=== PATIENT | male | born 1965 | race Caucasian/White ===

== ENCOUNTER 2023-11-05 19:32 | Emergency (ER) | payer OTHER, SELFPAY ==
[2023-11-05 19:39] VITALS: BP 162/88; PULSE 65; RESP 20; TEMP 36.7; O2SAT 97; BMI 21.7
--- NOTE | 2023-11-05 20:03 | CRLHL7_ITS ---
For Patients: As a result of the Century Cures Act, medical imaging exams and procedure reports are released immediately into your electronic medical record. You may view this report before your referring provider. If you have questions, please contact your health care provider. INDICATION: Cough. TECHNIQUE: Chest radiographs, two views. COMPARISON: Chest radiographs 06/04/2021. FINDINGS: Lines/Tubes/Devices: None. Mediastinum: Normal cardiac silhouette. Lungs: There may be a subtle ill-defined hazy left retrocardiac opacification, with obscuration of the lower thoracic vertebral bodies. Linear bandlike opacifications of the lung bases likely due to subsegmental atelectasis and/or scarring. Airways: The trachea remains midline. Pleura: No pleural effusions or pneumothorax. Bones: No acute osseous abnormalities. Upper Abdomen: Unremarkable. IMPRESSION: Questionable ill-defined left retrocardiac opacification, which may represent atelectasis versus a developing pneumonia in the appropriate clinical setting. Dictated by Jose Alejandro MD @ 11/05/2023 8:53:47 PM (Electronically Signed)
--- NOTE | 2023-11-05 20:04 | ED_ITS ---
HPI - General Adult General Chief complaint: Shortness of Breath/Dyspnea Stated complaint: shortness of breath, weak Time Seen by Provider: 11/05/23 19:43 History of Present Illness HPI narrative: This 58-year-old male was seen yesterday in the emergency department and diagnosed with influenza. He started Tamiflu in comes in today because he states that he feels more short of breath with chest fullness. He does arrive here with normal vital signs and is showing no signs of respiratory distress. Related Data Previous Rx's Medication Instructions Recorded oseltamivir 75 mg capsule (Tamiflu) 75 mg PO BID 5 days #10 caps 11/04/23 acetaminophen 300 mg-codeine 30 mg 1 tab PO Q6H PRN pain #20 tabs 11/05/23 tablet methylprednisolone 4 mg tablets in See Rx Instructions PO .COMPLEX 11/05/23 a dose pack (Medrol (Flynn)) #21 ea Allergies Allergy/AdvReac Type Severity Reaction Status Date / Time Penicillins Allergy Mild SWELLING Verified 11/04/23 15:57 Review of Systems Status of ROS: Reports: 10 or more systems reviewed and unremarkable except as noted in History and below Narrative: Constitutional: No fevers, no weight gain or loss. Generalized aches and pains. Eyes: No discharge. No vision changes. HENT: No congestion, no sore throat, no ear pain. Cardiovascular: No chest pain, no palpitations. Respiratory: No wheezes. He reports a cough and shortness of breath. Gastrointestinal: No abdominal pain, no vomiting, no diarrhea. Genitourinary: No dysuria, no hematuria. Musculoskeletal: Normal range of motion. Skin: No rashes, no pruritis. Neurological: No dizziness, weakness, sensory change, speech change. Endo/Heme/Allergies: No bruising or bleeding. No polydipsia. Pysch: no suicidality, no anxiety, no insomnia. All other systems reviewed and are negative. [facility] Medical History (Updated 11/05/23 @ 21:06 by Niraj Farrar MD) Influenza ?J11.1 - Influenza due to unidentified influenza virus with other respiratory manifestations (ICD-10) Exam Narrative: Exam Narrative: Constitutional: Well-developed, well-nourished, no acute distress. HEENT: Normocephalic, atraumatic. Neck: Normal range of motion. Nontender. Supple. Heart: Regular. No murmurs. Normal rate. Intact distal pulses. Lungs: Clear to auscultation. No chest discomfort. No wheezes, rhonchi, or rales. Abdomen: Normal bowel sounds. Nontender. No rebound tenderness. Genitalia: Deferred. Back: No midline tenderness. Normal range of motion. Extremities: Normal range of motion. No injury. Skin: Intact. No rash. Warm. No erythema or pallor. Neurologic: No altered sensation. No weakness. Alert and oriented. Psychiatric: No suicidality. No anxiety or depression. No insomnia. Nursing notes and vitals signs are reviewed. Const: Vital Signs, click to edit/add: Vital Signs - 24 hr 11/05/23 19:39 Temperature 98.0 F Pulse Rate [Pulse Oximeter] 65 Respiratory Rate 20 Blood Pressure [Ri ght Upper Arm] 162/88 H Pulse Oximetry 97 Oxygen Delivery Me thod Room Air Course Vital Signs Vital signs: Initial Vital Signs Temperature 98.0 F 11/05/23 19:39 Temperature Source Temporal Artery Scan 11/05/23 19:39 Pulse Rate 65 11/05/23 19:39 Pulse Rhythm Regular 11/05/23 19:39 Respiratory Rate 20 11/05/23 19:39 Blood Pressure 162/88 H 11/05/23 19:39 Blood Pressure Mean 112 H 11/05/23 19:39 Blood Pressure Position Sitting 11/05/23 19:39 Pulse Oximetry 97 11/05/23 19:39 Oxygen Delivery Method Room Air 11/05/23 19:39 Vital Signs Temperature 98.0 F 11/05/23 19:39 Pulse Rate 65 11/05/23 19:39 Respiratory Rate 20 11/05/23 19:39 Blood Pressure 162/88 H 11/05/23 19:39 Pulse Oximetry 97 11/05/23 19:39 Oxygen Delivery Method Room Air 11/05/23 19:39 Temperature 98.0 F 11/05/23 19:39 Pulse Rate 65 11/05/23 19:39 Respiratory Rate 20 11/05/23 19:39 Blood Pressure 162/88 H 11/05/23 19:39 Pulse Oximetry 97 11/05/23 19:39 Oxygen Delivery Method Room Air 11/05/23 19:39 Medical Decision Making MDM Narrative Medical decision making narrative: This patient is positive for influenza a infection. He comes in stating that he feels more chest congestion and shortness of breath. He does arrive with normal vital signs and is not using accessory muscles for breathing. He is oximetry is 97% on room air. I chest x-ray is obtained and shows no findings typical of pneumonia. Radiologist questions about a retrocardiac up on finding that may be in a past City but this really is not likely a pneumonia when correlated with clinical findings of examining the patient. The patient did receive an oral dose of dexamethasone 10 mg. He also received prescriptions for Tylenol 3 and Medrol Dosepak. He is currently taking Tamiflu but it sounds like he started this medicine about 3 days after the onset of symptoms. This is probably outside of the time frame where Tamiflu may provide some benefit. Imaging Data Chest x-ray: Radiologist's impression: Questionable ill-defined left retrocardiac opacification, which may represent atelectasis versus a developing pneumonia in the appropriate clinical setting. Discharge Plan Discharge Clinical Impression: Influenza Patient Disposition: Home, Self-Care Condition: Stable Additional Instructions: Take medication as needed and indicated. Follow up with MD or return if worsening symptoms occur. Prescriptions: New acetaminophen-codeine 300-30 mg tablet 1 tab PO Q6H PRN (Reason: pain) Qty: 20 0RF methylprednisolone [Medrol (Flynn)] 4 mg tablets,dose pack See Rx Instructions .ROUTE .COMPLEX Qty: 21 0RF Rx Instructions: orally per package directions No Action oseltamivir [Tamiflu] 75 mg capsule 75 mg PO BID 5 Days Qty: 10 0RF Follow Up/Referrals: Niraj Molina MD [Primary Care Provider] - Stand Alone Forms: [employer] Info Instructions
--- OUTSIDE RECORDS SUMMARY | 2023-11-05 20:18 | XMS_ITS | Encounter Summary ---
Author Name Unknown Organization [facility] Address [address] [place] [address] Care Team Providers Care Zinc Etcher Name Role Phone Madison Jimenez DO Primary Care Provider [phone] Reason for Visit * Procedure/Equipment (Routine) - Incomplete Specialty Diagnoses / Procedures Referred By Contac t Referred To Contact Diagnoses Crushing injury of left index finger, subsequent encounter Laceration of left index finger without foreign body, nail damage status unspecified, subsequent encounter Closed displaced fracture of distal phalanx of left index finger with routine healing, subsequent encounter Procedures XR Finger Lt Index 2+ Views Holden Arce PA-C [address] [facility] [address] [place] [address] Referral ID Status Reason Start Date Expiration Date V isits Requested Visits Authorized [id number] Incomplete 11/21/2022 02/20/2024 1 1 Encounter Details Date Type Department Care Team Description 11/21/2022 2:15 PM ORACLE CONSULTANT [facility] [address] [facility] [address] [place] [id number] Holden Arce, PAKerri [address] [facility] [address] [place] [address] Crushing injury of left index finger, subsequent encounter; Laceration of left index finger without foreign body, nail damage status unspecified, subsequent encounter; Closed displaced fracture of distal phalanx of left index finger with routine healing, subsequent encounter Social History Tobacco Use Types Packs/Day Years Used Date Smoking Tobacco: Every Day Cigarettes Smokeless Tobacco: Never Comments:Smoking History Pac ks/day: Alcohol Use Standard Drinks/Week Comments No 0 (1 standard drink = 0.6 oz pur e alcohol) Sex and Gender Information Value Date Recorded Sex Assigned at Not on file Gender Identity Not on file Sexual Orientation Not on file documented as of this encounter Plan of Treatment Not on file documented as of this encounter Procedures Procedure Name Priority Date/Time Associated Diagnosis Comments XR FINGER LT INDEX 2+ VIEWS Routine 11/21/2022 2:16 PM ORACLE CONSULTANT Crushing injury of left index finger, subsequent encounter Laceration of left index finger without foreign body, nail damage status unspecified, subsequent encounter Closed displaced fracture of distal phalanx of left index finger with routine healing, subsequent encounter documented in this encounter Results * XR Finger Lt Index 2+ Views (11/21/2022 2:16 PM ORACLE CONSULTANT) Anatomical Region Laterality Modality Upper Extremity, Hand Digital Ra diography 11/21/2022 2:11 PM ORACLE CONSULTANT Impressions 11/21/2022 2:30 PM ORACLE CONSULTANT COMPARISON: ??07/04/2022 FINDINGS: ??Fracture of the distal phalanx appears to have healed without change in position and alignment. No new findings have developed. Narrative Procedure Note Miguel Roy MD - 11/21/2022 IMPRESSION COMPARISON: 07/04/2022 FINDINGS: Fracture of the distal phalanx appears to have healed withoutchange in position and alignment. No new findings have developed. Holden Arce PA-C RAD GD documented in this encounter Visit Diagnoses Diagnosis Crushing injury of left index finger, subsequent encounter Laceration of left index finger without foreign body, nail damage status unspecified, subsequent encounter Closed displaced fracture of distal phalanx of left index finger with routine healing, subsequent encounter documented in this encounter Care Teams Zinc Etcher Relationship Specialty Start Date End Date Madison Jimenez DO [address] [place] [address] PCP - General Family Practice 01/02/17 documented as of this encounter
--- OUTSIDE RECORDS SUMMARY | 2023-11-05 20:18 | XMS_ITS | Clinical Summary ---
Author Name Unknown Organization [facility] Address [address] [place] [address] Care Team Providers Care Help Desk Consultant Name Role Phone Madison Jimenez Shandra BARRERA Primary Care Provider [phone] Source Comments You are receiving this document as you are listed as the primary care provider,follow-up provider, or the patient has been referred to you for consultation.This is in compliance with the Medicare and[employer] Hospital[employer] EHR Incentive Program,which states Providers who transition their patient to another setting of careor provider of care or refers their patient to another provider of care shouldprovide summary care record for each transition of care or referral. Formerly [facility], 1928–1983 Allergies Active Allergy Reactions Criticality Noted Date Comments Penicillins Edema,generalized 12/23/2005 Medications Medication Sig Dispensed Refills Start Date End Date Status clindamycin (CLEOCIN) 300 MG capsule Take 300 mg by mouth 4 times a day. 0 06/03/2022 Active HYDROcodone-acetaminop hen (NORCO) 5-325 MG tablet Take 1 Tablet by mouth every 4 hours as needed. 0 06/03/2022 Active Ibuprofen 200 MG capsule Take 400 mg by mouth. 0 Active Active Problems No known active problems Encounters Date Type Department Care Team Description 11/05/2023 Nurse Triage Careline [address] [place], [place] [id number] Unknown, Physician CHEST SYMPTOMS; SOB (SHORTNESS OF BREATH) from Last 3 Months Immunizations Name Administration Dates Next Due TDAP (BOOSTRIX) 03/06/2015 Td 10/19/1997 Social History Tobacco Use Types Packs/Day Years Used Date Smoking Tobacco: Every Day Cigarettes Smokeless Tobacco: Never Comments:Smoking History Pac ks/day: Alcohol Use Standard Drinks/Week Comments No 0 (1 standard drink = 0.6 oz pur e alcohol) Sex and Gender Information Value Date Recorded Sex Assigned at Not on file Gender Identity Not on file Sexual Orientation Not on file Last Filed Vital Signs Vital Sign Reading Time Taken Comments Blood Pressure 110/70 01/02/2017 11:06 AM CDT Pulse 88 01/02/2017 11:06 AM CDT Temperature 36.6 ??C (97.9 ??F) 12/23/2005 1:47 PM BOATSWAINS MATE ORAL C: 36.6 C Respiratory Rate - - Oxygen Saturation - - Inhaled Oxygen Concentration - - Weight 69.4 kg (153 lb) 06/06/2022 11:1 0 AM CDT Height 167.6 cm (5' 6) 06/06/2022 11:1 0 AM CDT Body Mass Index 24.69 06/06/2022 11:10 AM CDT Plan of Treatment Health Maintenance Due Date Last Done Comments Colon Cancer Screening Plan Due 1965 Hep C Screening (Preventive Services) 1965 HepB (1) 1965 PSA Screening Discussion 1965 Pneumococcal (1 - PCV) 1971 Adult Preventive Visit 1983 Cholesterol 12/23/2010 12/23/2005 Zoster/Shingles (1 of 2) 2015 COVID-19 Vaccine (4 - 2022-2 4 season) 2023 09/21/2021, 01/30/2021, 01/09/2021 Influenza (#1) 2023 DTaP/Tdap/Td (3 - Tdap) 03/06/2025 03/06/20 15, 02/23/2015, 10/19/1997 HIV Screening (Preventive Services) Completed 10/26/2009 HepA Aged Out No longer eligi ble based on patient's age to complete this topic Hib Aged Out No longer eligi ble based on patient's age to complete this topic IPV (Polio) Aged Out No longer eligi ble based on patient's age to complete this topic MCV4 Aged Out No longer eligi ble based on patient's age to complete this topic Care Teams Help Desk Consultant Relationship Specialty Start Date End Date Madison Jimenez DO [address] [place] [address] PCP - General Family Practice 01/02/17
--- OUTSIDE RECORDS SUMMARY | 2023-11-05 20:18 | XMS_ITS | Encounter Summary ---
Author Name Unknown Organization [facility] Address [address] [place] [address] Care Team Providers Care Surgery Manager Name Role Phone Madison Jimenez DO Primary Care Provider [phone] Reason for Referral * Procedure/Equipment (Routine) - Incomplete Specialty Diagnoses [...] Lt Index 2+ Views Holden Arce PA-C [address] [facility] [address] [place] [address] Referral ID Status Reason Start Date Expiration Date V isits Requested Visits Authorized [id number] Incomplete 11/21/2022 02/20/2024 1 1 LITY COORDINATOR Reason for Visit * Reason Comments Follow-up pain in left hand/in dex finger Encounter Details Date Type Department Care Team Description 11/21/2022 2:10 PM FACILITY COORDINATOR Office Visit [facility] [address] [place] [address] Holden Arce PA-C [address] [facility] [address] [place] [address] Crushing injury of left index finger, subsequent encounter (Primary Dx); Laceration of left index finger without foreign [...] on file documented as of this encounter Progress Notes * Holden Arce PA-C - 11/21/2022 12:00 AM CST NAME: CORNELIUS IVY CSN: [id number] CLINIC NOTE DATE OF SERVICE: 11/21/2022 : 1965 Cornelius follows up for recheck of his left index finger. He sustained a crush injury with distal phalanx fracture, which is intra-articular and a laceration to the distal aspect of his finger on 06/03/2022. This was a work-related injury. He underwent hand therapy, was discharged on 07/19/2022 withmotion at the MCP joint of 0 to 70 degrees, at the PIP joint 0 to 85 degrees, and at the DIP joint 0 to 50 degrees. He comes in at Works request because he has been having some continued stiffness inthe digit and pain at the interphalangeal joints both PIP and DIP joint level. Examination of the left index finger reveals relatively good contour. There is mild nail bed and nail plate deformity. No open wounds or signs of infection. He has motion from 0 to about 110 degrees at the MCP joint. He has 0 to 90 degrees at the PIP joint and he lacks about 10 degrees of extension at the DIP joint, but can flex to about 50 degrees. Brisk capillary refill is noted in the tip of the finger. New radiographs, three views of the left index finger are taken today and reviewed. The PIP and DIPjoint are with some mild degenerative change. Nothing significant, but there is mild narrowing of the joint spaces. The intra- articular fracture at the distal phalanx has fully consolidated and the ar ticular surface is congruous. ASSESSMENT: Status post injury to the left index finger with crush injury, laceration, and distal phalanx fracture, which has healed. PLAN: The patient's ongoing discomfort is partly posttraumatic and likely due to some mild degenerative change. He has been hesitant to work on range of motion and I have advised him even through thediscomfort to continue to work on active assisted and passive ranges of motion. He understands thathe may see some slight benefit for even up to a year after injury and will continue to have improvement in his discomfort. At this point, he continues to require no formal restrictions. He can work without limitation and can follow up with me on a p.r.n. basis. MERLY BOO/MARIA EUGENIA /[id number] LITY COORDINATOR documented in this encounter Plan of Treatment Not on file documented as of this encounter Results * XR Finger Lt Index 2+ Views (11/21/2022 2:16 PM FACILITY COORDINATOR) Anatomical Region Laterality Modality Upper Extremity, Hand Digital Ra diography 11/21/2022 2:11 PM FACILITY COORDINATOR Impressions 11/21/2022 2:30 PM FACILITY COORDINATOR COMPARISON: ??07/04/2022 FINDINGS: ??Fracture of the distal [...] Crushing injury of left index finger, subsequent encounter- Primary Laceration of left index finger without foreign body, nail damage status unspecified, subsequent encounter Closed displaced fracture of distal phalanx of left index finger with routine healing, subsequent encounter Crushing injury of left index finger, subsequent encounter Laceration of left index finger without foreign body, nail damage status unspecified, subsequent encounter Closed displaced fracture of distal phalanx of left index finger with routine healing, subsequent encounter documented in this encounter Care Teams Surgery Manager Relationship Specialty Start Date End Date Madison Jimenez DO [address] [place] [address] PCP - General Family Practice 01/02/17 documented as of this encounter
--- OUTSIDE RECORDS SUMMARY | 2023-11-05 20:18 | XMS_ITS | Clinical Summary ---
Author Name Unknown Organization [facility] Address [place], [place] [address] Care Team Providers Care Director Operating Room Name Role Phone Pcp, No Primary Care Provider Unavailabl e Allergies Active Allergy Reactions Criticality Noted Date Comments Penicillins Edema 02/23/2015 Medications Medication Sig Dispensed Refills Start Date End Date Status ibuprofen (ADVIL) 200 mg cap Take 200 mg by mouth every morning. 0 Active HYDROcodone-acetam inophen (Jefferson) 5-325 mg per tabletIndications: Open displaced fracture of distal phalanx of left index finger, initial encounter Take 1 Tablet by mouth every 4 hours if needed for Pain. Max acetaminophen dose: 4000 mg in 24 hrs. 15 Tablet 0 06/03/2022 Active Active Problems Problem Noted Date Diagnosed Date Lumbar radiculopathy 01/08/2017 Tobacco abuse 01/08/2017 Immunizations Name Administration Dates Next Due Tdap 02/23/2015 Social History Tobacco Use Types Packs/Day Years Used Date Smoking Tobacco: Every Day Cigarettes 1 30 Smokeless Tobacco: Never Tobacco Cessation:Ready to Q uit: No; Counseling Given: Yes Alcohol Use Standard Drinks/Week Comments Not Asked 0 (1 standard drink = 0.6 oz pur e alcohol) Sex and Gender Information Value Date Recorded Sex Assigned at Not on file Gender Identity Not on file Sexual Orientation Not on file Obstetrics History Last Filed Vital Signs Vital Sign Reading Time Taken Comments Blood Pressure 187/99 06/03/2022 9:15 AM CDT Pulse 60 06/03/2022 9:16 AM CDT Temperature 36.4 ??C (97.6 ??F) 06/03/2022 8:08 AM CD T Respiratory Rate 16 06/03/2022 8:04 AM CDT Oxygen Saturation 95% 06/03/2022 9:16 AM CDT Inhaled Oxygen Concentration - - Weight 72.6 kg (160 lb) 06/03/2022 8:04 AM CDT Height 172.7 cm (5' 8) 06/03/2022 8:04 AM CDT Body Mass Index 24.33 06/03/2022 8:04 AM CDT Plan of Treatment Health Maintenance Due Date Last Done Comments HIV for age 15-65 1980 Hepatitis C screening for ag e 18-79 1983 Colonoscopy through age 75 2010 Lipids for age 45-75 2010 Zoster (shingles) series for age 50+ (1 of 2) 2015 BMI (ht and wt on same day) for age 18+ 01/08/2018 01/08/2017, 04/12/2016 Depression screening for age 12+ 01/08/2018 01/08/2017 COVID-19 vaccine series (2022- season) 2023 09/21/2021, 01/30/2021, 01/09/2021 Influenza for age 50-64 06/06/2023 Tetanus booster 02/23/2025 02/23/2015 Tdap Completed 02/23/2015 Pneumococcal series for age 6-64 Aged Out No longer eligible b ased on patient's age to complete this topic Care Teams Director Operating Room Relationship Specialty Start Date End Date Pcp, No . PCP - General 02/23/15
--- OUTSIDE RECORDS SUMMARY | 2023-11-05 20:18 | XMS_ITS | Encounter Summary ---
Author Name Unknown Organization [facility] Address [address] [place] [address] Care Team Providers Care Bolter Helper Name Role Phone TonyMadison christianson Shandra ABRRERA Primary Care Provider [phone] Reason for Visit * Reason Comments CHEST SYMPTOMS SOB (SHORTNESS OF BREATH) Encounter Details Date Type Department Care Team Description 11/05/2023 Nurse Triage Careline [address] [place], [place] [id number] Unknown, Physician [address] [place], [place] [id number] CHEST SYMPTOMS; SOB (SHORTNESS OF BREATH) Social History Tobacco Use Types Packs/Day Years [...] on file documented as of this encounter Nursing Notes * Lianne Valdes RN - 11/05/2023 6:29 PM CST Verified patient identity: Yes Speaking with patient Situation/Background (brief explanation of current symptoms/situation): Patient has influenza. He went in for evaluation yesterday 11/04. He got a prescription for tamiflu.He had his first dose yesterday. He then had his second dose this morning. Patient states that starting around 7 am this morning 11/05 he started to notice some chest tightness and shortness of breath. This is there at all times. He also states he feels burning to his throat, he feels unsteady at times and has clammy skin.He reports that It hurts with a deep breath. He does not have any abnormal breathe sounds. He is having a full conversation with triage nurse and denies any new onset confusion. He states he does not feel chest pain. He states his chest feels heavy Reviewed with patient pertinent medical history (as it related to the call): Yes Reviewed with patient pertinent medications (as they relate to call): Yes Reviewed with patient pertinent allergies (as they relate to call): N/A Reason for Disposition Chest pain [1] Chest pain lasts > 5 minutes AND [2] described as crushing, pressure-like, or heavy Protocols used: Chest [id number], Breathing [id number] Plan: Call 911 now. Pt disagrees with plan. Patient states that it is too expensive and he can not afford an ambulance bill. He states he will call and get a ride to the ER. I want you to understand that you could be experiencing a harmful medical condition for which waiting for a ride is not a safe place for your symptoms. You do not have to follow my recommendation butI need to make sure you understand. Do you understand? Yes. Patient states he will call for a ride. As patient will not call 911, triage nurse encouraged patient to watch for worsening symptoms and highly encouraged patient to call 911 if symptoms worsen prior to his ride in to the ER. Lianne Olivarez RN CareLine 6:45 PM 11/05/2023 T SPECIALIST * Bhavna Odonnell - 11/05/2023 6:26 PM CST Verified patient using 3 identifiers: Yes Caller reports the following red flag symptoms: pt states he is on this med: aseltamizir since yesterday and he took two dozed. Pt states now he has theses symptoms: heavy chest, shortness of breath and dry throat. Plan: Transferred directly to a CareLine RN. T SPECIALIST documented in this encounter Plan of Treatment Not on file documented as of this encounter Visit Diagnoses Not on filedocumented in this encounter Care Teams Bolter Helper Relationship Specialty Start Date End Date Madison Jimenez DO [address] [place] [address] PCP - General Family Practice 01/02/17 documented as of this encounter
[2023-11-05 21:15] VITALS: PULSE 59; RESP 18; O2SAT 96
== END 2023-11-05 21:20 | disposition home or self-care (01) ==
PROVIDERS: Emergency Provider Emergency Medicine Emergency Medical Services; PCP Family Medicine
DX: J10.1 Influenza due to other identified influenza virus with other respiratory manifestations (principal)
CPT/HCPCS: 71046; 99283; 99284

== ENCOUNTER 2024-05-27 14:22 | Outpatient (CLI) | payer OTHER, SELFPAY ==
--- OUTSIDE RECORDS SUMMARY | 2024-06-04 08:25 | XMS_ITS | Clinical Summary ---
Author Organization [employer] [facility] Address [place], [place] [address] Care Team Providers Care Merchant Mariner Name Role Phone Pcp, No Primary Care Provider Unavailabl e Allergies Active Allergy Reactions Criticality Noted Date Comments Penicillins Edema 02/23/2015 Medications Medication Sig Dispensed Refills Start Date End Date Status ibuprofen (ADVIL) 200 mg cap Take 200 mg by mouth every morning. Active HYDROcodone-acetam inophen ([place]) 5-325 mg per tabletIndications: Open displaced fracture of distal phalanx of left index finger, initial encounter Take 1 Tablet by mouth every 4 hours if needed for Pain. Max acetaminophen dose: 4000 mg in 24 hrs. 15 Tablet 06/03/2022 Active Active Problems Problem Noted Date [...] age 12+ 01/08/2018 01/08/2017 COVID-19 vaccine series (2022-24 season) 2023 09/21/2021, 01/30/2021, 01/09/2021 Influenza for age 50-64 06/06/2024 Tetanus booster 02/23/2025 02/23/2015 Tdap Completed 02/23/2015 Pneumococcal series for age 6-64 Aged Out No longer eligible b ased on patient's age to complete this topic Care Teams Merchant Mariner Relationship Specialty Start Date End Date Pcp, No . PCP - General 02/23/15
--- OUTSIDE RECORDS SUMMARY | 2024-06-04 08:25 | XMS_ITS | Clinical Summary ---
[facility] Address [address] [place] [address] Care Team Providers Care Human Resources Clerk Name Role Phone Madison Jimenez Shandra BARRERA Primary Care Provider [phone] Source Comments You are receiving this document as you are listed as the primary care provider,follow-up provider, or the patient has been referred to you for consultation.This is in compliance with the Medicare and[facility] EHR Incentive Program,which states Providers who transition their patient to another setting of careor provider of care or refers their patient to another provider of care shouldprovide summary care record for each transition of care or referral. [facility] Allergies Active Allergy Reactions Criticality Noted Date Comments Penicillins Edema,generalized 12/23/2005 Medications Medication Sig Dispensed Refills Start Date End Date Status clindamycin (CLEOCIN) 300 MG capsule Take 300 mg by mouth 4 times a day. 06/03/2022 Active HYDROcodone-acetaminop hen ([place]) 5-325 MG tablet Take 1 Tablet by mouth every 4 hours as needed. 06/03/2022 Active Ibuprofen 200 MG capsule Take 400 mg by mouth. Active Active Problems No known active problems Immunizations Name Administration Dates Next Due TDAP [...] CDT Temperature 36.6 ??C (97.9 ??F) 12/23/2005 1 :47 PM METAL GRADER ORAL C: 36.6 C Respiratory Rate - [...] 1965 Hep C Screening (Preventive Services) 1965 MTM Covered 1965 PSA Screening Discussion 1965 Pneumococcal (1 - PCV) 1971 Adult Preventive Visit 1983 HepB (1) 1984 Cholesterol 12/23/2010 12/23/2005 Zoster/Shingles (1 of 2) 2015 COVID-19 Vaccine (4 - 2022-2 4 season) 2023 09/21/2021, 01/30/2021, 01/09/2021 Influenza (#1) 2024 DTaP/Tdap/Td (3 - Tdap) 03/06/2025 03/06/20 15, [...] on patient's age to complete this topic Procedures Procedure Name Priority Date/Time Associated Diagnosis Comments HIV ANTIBODY Routine 10/26/2009 4:15 PM METAL GRADER CHOLESTEROL, TOTAL AND HDL Routine 12/23/2005 2:49 PM METAL GRADER from Last 3 Months or Most Recently Relevant to Health Maintenance Results * HIV ANTIBODY (10/26/2009 4:15 PM METAL GRADER) HIV 1/HIV 2 Non Reac Non Reac HP CONVERSION 10/26/2009 4:15 PM METAL GRADER Leonid Ye MD LAB_1 HP CONVERSION * Cholesterol, Total and HDL (12/23/2005 2:49 PM METAL GRADER) Cholesterol/HDL Ratio Screen 4.2 No normal range HP CONVERSION Cholesterol 195 <200 mg/dL HP CONVERSION HDL Cholesterol 46 40 - 60 mg/dL HP CONVERSION 12/23/2005 2:49 PM METAL GRADER Cara Hebert MD LAB_1 HP CONVERSION from Last 3 Months or Most Recently Relevant to Health Maintenance Care Teams Human Resources Clerk Relationship Specialty Start Date End Date Madison Jimenez DO [address] [place] [address] PCP - General Family Practice 01/02/17
== END 2024-05-27 14:23 | disposition home or self-care (01) ==
LOC: NFLDREF 06-04 08:23
PROVIDERS: PCP Family Medicine; Referring Provider Family Medicine; Visit Provider Nurse Practitioner
DX: M54.50 Low back pain, unspecified (principal); M54.9 Dorsalgia, unspecified; M25.511 Pain in right shoulder; M54.2 Cervicalgia; S29.9XXA Unspecified injury of thorax, initial encounter; S19.9XXA Unspecified injury of neck, initial encounter; S49.91XA Unspecified injury of right shoulder and upper arm, initial encounter
CPT/HCPCS: 87086